=== PATIENT | male | born 1945 | race Caucasian/White ===

== ENCOUNTER → 2021-09-14 08:05 | Outpatient (CLI) | payer MEDICARE, SELFPAY ==
--- NOTE | 2021-09-14 08:39 | DI.CT.S_ITS ---
PROCEDURE: CT LE RT WO CON INDICATIONS: RULE OUT INFECTION TECHNIQUE: Noncontrast 1-1.5 mm axial sections acquired from the mid-patella to the proximal tibia, with coronal and sagittal reformats. COMPARISON: Located Within [facility], CR, XR KNEE ARTHRITIC SERIES RT, 07/13/2021, 9:56. FINDINGS: Image quality: There is metallic streak artifact limiting evaluation. Bones: A right total knee prosthesis is redemonstrated. No definite suspicious periprosthetic lucencies are identified. There are small foci of gas within the bone cement in the proximal tibia. No fractures or dislocation. No discrete bony erosions. Visualized osseous structures appear osteopenic. There is mild degeneration at the proximal tibiofibular articulation. Soft tissues: There is a small knee joint effusion with suggestion of synovial thickening and mild periarticular fat stranding. The visualized musculature appears preserved. No loculated fluid collections. IMPRESSION: 1. Small foci of gas within the bone cement in the proximal tibia. The findings are nonspecific and may reflect residual sequelae of prior surgery but infection cannot be excluded. 2. Small knee joint effusion with nonspecific synovial thickening. The findings small so reflect residual reactive changes from prior surgery but septic arthritis cannot be excluded. Correlation is recommended clinically and joint aspiration if indicated. Dictated by: Rodrigo Baugh M.D. on 09/14/2021 at 12:56 Approved by: Rodrigo Baugh M.D. on 09/14/2021 at 13:03
== END ==
PROVIDERS: PCP Family Medicine; Referring Provider Orthopaedic Surgery; Visit Provider Orthopaedic Surgery
DX: Z96.651 Presence of right artificial knee joint (principal); M25.461 Effusion, right knee
CPT/HCPCS: 73700

== ENCOUNTER → 2021-11-14 08:33 | Outpatient (CLI) | payer MEDICARE, SELFPAY ==
--- NOTE | 2021-11-14 | DI.NM.S_ITS ---
PROCEDURE: NM BONE SCAN WHOLE BODY RADIOPHARMACEUTICAL: 19.2 mCi Tc-99m MDP IV. INDICATIONS: Loosening of right knee prosthetic joint TECHNIQUE: Delayed whole-body scintigrams were obtained approximately 3-4 hours after intravenous injection of radiotracer. Anterior and posterior views were acquired from vertex to feet. Additional left and right oblique views of the knees were obtained. COMPARISON: [facility], CR, XR FOOT 3+ VIEWS LEFT, 09/12/2019, 17:40. [facility], CR, XR KNEE ARTHRITIC SERIES BI, 10/12/2021, 8:58. [facility], CT, CT LE RT WO CON, 09/14/2021, 8:20. FINDINGS: There is right knee total arthroplasty. There is mildly increased activity around knee prosthesis. There is intensely increased uptake in the left mid to hind foot. Increased uptake in the posterior left 7th, 8th and 9th ribs are noted, likely secondary to subacute rib fractures. No lesions are identified in skull, sternum, clavicles, scapulae, bony pelvis, and visualized shafts of the long bones. There is low level increased uptake in cervical, thoracic and lumbar spine with distribution indistinguishable from degenerative disc and facet disease; early metastasis to spine could be obscured by degenerative changes. There are foci of increased periarticular activity, compatible with degenerative/arthritic changes. IMPRESSION: 1. Total right knee arthroplasty. Mildly increased activity around right knee prosthesis is most likely secondary to postsurgical change. No definitive evidence for prosthesis loosening or infection. 2. Intensity increased uptake in the left foot. The scintigraphic finding is nonspecific and requires radiographic correlation. 3. Increased uptake in the left 7th, 8th and 9th ribs are most likely secondary to rib fractures. 3. 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 Dictated by: Jacqueline Lobato M.D. on 11/14/2021 at 17:53 Approved by: Jacqueline Lobato M.D. on 11/15/2021 at 8:48
== END ==
PROVIDERS: PCP Family Medicine; Referring Provider Orthopaedic Surgery; Visit Provider Orthopaedic Surgery
DX: T84.032A Mechanical loosening of internal right knee prosthetic joint, initial encounter (principal)
CPT/HCPCS: 78306; A9503

== ENCOUNTER → 2023-12-13 09:42 | Outpatient (CLI) | payer OTHER, SELFPAY | PROVIDERS: Family Provider Nurse Practitioner; PCP Nurse Practitioner; Referring Provider Nurse Practitioner Family; Visit Provider Nurse Practitioner Family | DX: R20.2 Paresthesia of skin (principal) | CPT/HCPCS: 95885; 95886; 95912 ==